=== PATIENT | male | born 1955 | race Caucasian/White ===

== ENCOUNTER 2016-10-22 05:43 | Outpatient (CLI) | payer BC ==
[~2016-10-22] VITALS: Ht 188 cm; Wt 131.5 kg
[2016-10-22] MEDS ORDERED: METF500T4 PO (13:08)
[2016-10-22] MEDS ORDERED: DAPA10TA PO (13:08)
[2016-10-22] MEDS ORDERED: POTA10TA10 PO (13:08)
[2016-10-22] MEDS ORDERED: TEST200V21 IM (13:08)
[2016-10-22] MEDS ORDERED: ATOR10TA PO (13:08)
[2016-10-22] MEDS ORDERED: GLIM2TAB PO (13:08)
[2016-10-22] MEDS ORDERED: FURO80TA83 PO (13:08)
[2016-10-22] MEDS ORDERED: LOSA100T28 PO (13:08)
== END 2016-10-22 13:45 ==
LOC: PREOP 05:43
PROVIDERS: ATTEND Surgery
DX: Z01.818 Encounter for other preprocedural examination (principal); Z12.11 Encounter for screening for malignant neoplasm of colon

== ENCOUNTER 2016-10-26 10:19 | Day surgery (SDC) | payer BC ==
[~2016-10-26] VITALS: Ht 188 cm; Wt 131.5 kg
[~2016-10-26 10:19] MED LIST: ATOR10TA PO; DAPA10TA PO; FURO80TA83 PO; GLIM2TAB PO; LOSA100T28 PO; METF500T4 PO; POTA10TA10 PO; TEST200V21 IM
[2016-10-26] MEDS ORDERED: NS IV 500 ML 500 ML ONE ×2 (10:32→12:04)
[2016-10-26 10:45] VITALS: BP 131/80
[2016-10-26] MEDS: NS IV 500 ML 500 ML IV PRN ×2 (10:57→12:10)
--- NOTE | 2016-10-26 11:09 | History & Physicial ---
History of Present Illness History of Present Illness Reason for visit/HPI to undergo screening colonoscopy Date of Admission Date Seen by Provider: Oct 26, 2016 Time Seen by Provider: 11:08 I consulted on this patient on 10/26/16 11:07 Attending Physician Jim Keller MD Admitting Physician Ahmet Navarro MD Consult Allergies and Home Medications Allergies Coded Allergies: Penicillins (Verified Allergy, Unknown, rash, 10/26/16) Home Medications Atorvastatin Calcium 10 Mg Tablet, 10 MG PO DAILY, (Reported) Dapagliflozin Propanediol 10 Mg Tablet, 10 MG PO DAILY, (Reported) Furosemide 80 Mg Tablet, 80 MG PO DAILY, (Reported) Glimepiride 2 Mg Tablet, 2 MG PO DAILY, (Reported) Losartan Potassium 100 Mg Tablet, 100 MG PO DAILY, (Reported) Metformin HCl 500 Mg Tablet, 1,000 MG PO BID, (Reported) take 2 (500mg) tab Potassium Chloride 10 Meq Tablet.er, 10 MEQ PO DAILY, (Reported) Testosterone Cypionate 200 Mg/1 Ml Vial, 200 MG IM every 2 weeks, (Reported) Past Yuqquze-Toizrc-Ocjzhj Hx Patient Social History Employed/Student: employed Recent Foreign Travel: No Contact w/other who traveled: No Recent Hopitalizations: No Seasonal Allergies Seasonal Allergies: No Surgeries HX Surgeries: Yes (bilat TKR twice, back sx, rotator cuff sx, ) Surgeries: Tonsillectomy Respiratory Hx Respiratory Disorders: No Cardiovascular Hx Cardiovascular Disorders: Yes Cardiac Disorders: Hypertension Neurological Hx Neurological Disorders: No Genitourinary Hx Genitourinary Disorders: No Gastrointestinal Hx Gastrointestinal Disorders: No Musculoskeletal Hx Musculoskeletal Disorders: Yes Musculoskeletal Disorders: Arthritis Endocrine Hx Endocrine Disorders: Yes HEENT HX ENT Disorders: No Cancer Hx Cancer: No Psychosocial Hx Psychiatric Problems: No Integumentary HX Skin/Integumentary Disorder: No Blood Transfusions Hx Blood Disorders: No Constitutional: no symptoms reported EENTM: no symptoms reported Respiratory: no symptoms reported Cardiovascular: no symptoms reported Gastrointestinal: no symptoms reported Genitourinary: no symptoms reported Musculoskeletal: no symptoms reported Skin: no symptoms reported Psychiatric/Neurological: No Symptoms Reported Physical Exam Vital Signs Capillary Refill : General Appearance: No Apparent Distress HEENT: Normal ENT Inspection Neck: Normal Inspection Respiratory: Lungs Clear Cardiovascular: Regular Rate, Rhythm Gastrointestinal: Non Tender, Soft Rectal: Deferred Back: Normal Inspection Extremity: Normal Inspection Neurologic/Psychiatric: Alert, No Motor/Sensory Deficits Skin: Warm/Dry Assessment/Plan Assessment and Plan gentleman to undergo screening colonoscopy. Diverticulosis polyps etc. discussed. Seems to be in agreement to proceed Problems: JIM KELLER MD Oct 26, 2016 11:09 am
--- NOTE | 2016-10-26 11:09 | Conscious Sedation/ASA ---
Conscious Sedation Pre-Proced Time Reviewed: 11:09 ASA Class: 2 Airway Mallampati Classification: ([place] appropriate class) I. II. III, IV Lungs Heart ASA score ASA 1: a normal healthy patient ASA 2: a patient with a mild systemic disease (mid diabetes, controlled hypertension, obesity ASA 3: a patient with a severe systemic disease that limits activity (angina , COPD, prior Myocardial infarction) ASA 4: a patient with an incapacitating disease that is a constant threat to life (CHF, renal failure) ASA 5: a moribund patient not expected to survive 24 hrs. (ruptured aneurysm) ASA 6: a declared brain patient whose organs are being harvested. For emergent operations, add the letter E after the classification Grade 2 Sedation Plan: Discussed options with patient/fam Note The patient is an appropriate candidate to undergo the planned procedure, sedation, and anesthesia. The patient immediately re-assessed prior to indication. JIM KELLER MD Oct 26, 2016 11:09 am
[2016-10-26] MEDS ORDERED: fentaNYL INJECTION 100 MCG/2 ML AMP ONE ×3 (11:18→11:57)
[2016-10-26] MEDS ORDERED: MIDAZOLAM 2 MG/2 ML (VERSED) VIAL ONE ×7 (11:19→11:57)
[2016-10-26] MEDS: fentaNYL INJECTION 100 MCG/2 ML AMP IVP PRN ×2 (12:12→12:17)
[2016-10-26] MEDS: MIDAZOLAM 2 MG/2 ML (VERSED) VIAL IVP PRN ×3 (12:13→12:20)
--- NOTE | 2016-10-26 12:34 | Endo Procedure Record ---
Endo Procedure Report Date of Procedure Oct 26, 2016 Surgeon (s) JIM KELLER MD Post Procedure/Op Diagnosis poor bowel prep. No polyps Procedure Performed colonoscopy to cecum Description of Procedure Anesthesia Type: Conscious Sedation Specimen(s) collected/removed none Description of the Procedure Indication for procedure: This gentleman came in for screening colonoscopy. He has a personal and family history of polyps. Informed consent was obtained after reviewing the procedure details and iatrogenic complications of perforation and post-polypectomy bleeding. Description of the procedure: He was placed in left lateral decubitus position and his vital signs were monitored. Conscious sedation was achieved using Versed and fentanyl. Digital rectal examination was unremarkable. The colonoscope was then introduced in the rectum and advanced all the way up to the cecum. The quality of bowel preparation was rather poor. The scope was then withdrawn slowly and the mucosa examined in a systematic fashion There was no recurrence of polyps. He tolerated the procedure well and was taken back to the nursing area in a stable condition Impression: Personal history of polyps. Normal screening colonoscopy. Recommend repeating in 5 years. Copies To: KARRIE CASTRO MD, XAVIER M MD Oct 26, 2016 12:34 pm
--- NOTE | 2016-10-26 12:35 | Discharge Inst-Simple/Standard ---
Discharge Inst-Standard Discharge Medications New, Converted or Re-Newed RX: Other Patient Instructions/Follow Up Plan of Care/Instructions/FU: follow-up colonoscopy in 5 years Activity as Tolerated: Yes Discharge Diet: No Restrictions JIM KELLER MD Oct 26, 2016 12:35 pm
[2016-10-26 12:50] VITALS: BP 125/67
[2016-10-26 13:20] VITALS: BP 146/85
[2016-10-26 14:05] VITALS: BP 146/85
== END 2016-10-26 14:05 | disposition home or self-care (01) ==
LOC: ENDO 10:19
PROVIDERS: ATTEND Surgery
DX: Z12.11 Encounter for screening for malignant neoplasm of colon (principal); Z86.010 Personal history of colon polyps; Z83.71 Family history of colonic polyps; I10 Essential (primary) hypertension; M19.91 Primary osteoarthritis, unspecified site; Z79.899 Other long term (current) drug therapy
CPT/HCPCS: 82962

== ENCOUNTER 2019-03-20 12:43 | Outpatient (RCR) | payer BC ==
[~2019-03-20 12:43] MED LIST changes: -GLIM2TAB PO; +GLIM2TAB4 PO; -LOSA100T28 PO; +LOSA100T57 PO; +METF-397 PO; -METF500T4 PO
== END 2019-05-18 15:21 | disposition home or self-care (01) ==
PROVIDERS: ATTEND Internal Medicine
DX: I89.0 Lymphedema, not elsewhere classified (principal)

== ENCOUNTER → 2019-10-18 | Outpatient (CLI) | payer BC ==
[2019-10-18 11:25] LABS: BASOPHILS % (AUTO) 0 % (0-10); EOSINOPHILS # (AUTO) 0.1 10^3/uL (0.0-0.3); EOSINOPHILS % (AUTO) 1 % (0-10); HEMATOCRIT 39 % (40-54); LYMPHOCYTES # (AUTO) 1.9 X 10^3 (1.0-4.0); LYMPHOCYTES % (AUTO) 18 % (12-44); MEAN CORPUSCULAR HEMOGLOBIN 29 PG (25-34); MEAN CORPUSCULAR HGB CONC 33 G/DL (32-36); MEAN CORPUSCULAR VOLUME 89 FL (80-99); MEAN PLATELET VOLUME 9.8 FL (7.4-10.4); MONOCYTES % (AUTO) 9 % (0-12); NEUTROPHILS # (AUTO) 7.7 X 10^3 (1.8-7.8); NEUTROPHILS % (AUTO) 72 % (42-75); PLATELET COUNT 350 10^3/uL (130-400); RED CELL DISTRIBUTION WIDTH 13.8 % (10.0-14.5); WHITE BLOOD COUNT 10.7 10^3/uL (4.3-11.0)
[2019-10-18 11:44] LABS: ALANINE AMINOTRANSFERASE 17 U/L (0-55); ALBUMIN 3.6 GM/DL (3.2-4.5); ALKALINE PHOSPHATASE 70 U/L (40-136); BILIRUBIN,TOTAL 0.4 MG/DL (0.1-1.0); BUN/CREATININE RATIO 22; CALCIUM 8.5 MG/DL (8.5-10.1); CARBON DIOXIDE 20 MMOL/L (21-32); CHLORIDE 104 MMOL/L (98-107); CREATININE SERUM 0.87 MG/DL (0.60-1.30); GFR ESTIMATED > 60; GLUCOSE 99 MG/DL (70-105); POTASSIUM 4.5 MMOL/L (3.6-5.0); SODIUM 139 MMOL/L (135-145); TOTAL PROTEIN 7.2 GM/DL (6.4-8.2)
== END ==
LOC: LAB 10:46
PROVIDERS: ATTEND Surgery
DX: S81.801A Unspecified open wound, right lower leg, initial encounter (principal); L02.415 Cutaneous abscess of right lower limb; E11.622 Type 2 diabetes mellitus with other skin ulcer; L97.212 Non-pressure chronic ulcer of right calf with fat layer exposed; I70.232 Atherosclerosis of native arteries of right leg with ulceration of calf
CPT/HCPCS: 36415; 80053; 83036; 85025; 85652; 86141

== ENCOUNTER → 2019-10-18 | Outpatient (CLI) | payer BC | LOC: WOUNDCARE 10-09 12:44 | PROVIDERS: ATTEND Surgery | DX: E11.622 Type 2 diabetes mellitus with other skin ulcer (principal); E11.52 Type 2 diabetes mellitus with diabetic peripheral angiopathy with gangrene; I70.261 Atherosclerosis of native arteries of extremities with gangrene, right leg; L97.212 Non-pressure chronic ulcer of right calf with fat layer exposed; L02.415 Cutaneous abscess of right lower limb; S81.801A Unspecified open wound, right lower leg, initial encounter | CPT/HCPCS: 11042; 11045; A6260; G0463 ==

== ENCOUNTER → 2019-10-23 | Outpatient (CLI) | payer BC | LOC: WOUNDCARE 10:03 | PROVIDERS: ATTEND Surgery | DX: S81.801A Unspecified open wound, right lower leg, initial encounter (principal); L02.415 Cutaneous abscess of right lower limb; E11.622 Type 2 diabetes mellitus with other skin ulcer; L97.212 Non-pressure chronic ulcer of right calf with fat layer exposed; I70.242 Atherosclerosis of native arteries of left leg with ulceration of calf; E11.52 Type 2 diabetes mellitus with diabetic peripheral angiopathy with gangrene | CPT/HCPCS: 11042; 97605; G0463; 99211 ==

== ENCOUNTER → 2019-10-30 | Outpatient (CLI) | payer BC | LOC: WOUNDCARE 09:45 | PROVIDERS: ATTEND Surgery | DX: S81.801A Unspecified open wound, right lower leg, initial encounter (principal); L97.212 Non-pressure chronic ulcer of right calf with fat layer exposed; L02.415 Cutaneous abscess of right lower limb; E11.622 Type 2 diabetes mellitus with other skin ulcer; I70.232 Atherosclerosis of native arteries of right leg with ulceration of calf; E11.52 Type 2 diabetes mellitus with diabetic peripheral angiopathy with gangrene | CPT/HCPCS: 11042; 97605; G0463 ==

== ENCOUNTER → 2019-11-06 | Outpatient (CLI) | payer BC | LOC: WOUNDCARE 09:51 | PROVIDERS: ATTEND Surgery | DX: S81.801A Unspecified open wound, right lower leg, initial encounter (principal); L97.212 Non-pressure chronic ulcer of right calf with fat layer exposed; L02.415 Cutaneous abscess of right lower limb; E11.622 Type 2 diabetes mellitus with other skin ulcer; I70.232 Atherosclerosis of native arteries of right leg with ulceration of calf; E11.52 Type 2 diabetes mellitus with diabetic peripheral angiopathy with gangrene | CPT/HCPCS: 11042; 97605; G0463 ==

== ENCOUNTER → 2019-11-15 | Outpatient (CLI) | payer BC | LOC: WOUNDCARE 08:26 | PROVIDERS: ATTEND Surgery | DX: S81.801A Unspecified open wound, right lower leg, initial encounter (principal); L97.212 Non-pressure chronic ulcer of right calf with fat layer exposed; L02.413 Cutaneous abscess of right upper limb; E11.622 Type 2 diabetes mellitus with other skin ulcer; I70.232 Atherosclerosis of native arteries of right leg with ulceration of calf; E11.52 Type 2 diabetes mellitus with diabetic peripheral angiopathy with gangrene | CPT/HCPCS: 11042; G0463 ==

== ENCOUNTER → 2019-11-22 | Outpatient (CLI) | payer BC | LOC: WOUNDCARE 08:46 | PROVIDERS: ATTEND Surgery | DX: S81.801A Unspecified open wound, right lower leg, initial encounter (principal); L97.212 Non-pressure chronic ulcer of right calf with fat layer exposed; L02.415 Cutaneous abscess of right lower limb; I96 Gangrene, not elsewhere classified | CPT/HCPCS: 11042; G0463 ==

== ENCOUNTER → 2019-11-29 | Outpatient (CLI) | payer BC | LOC: WOUNDCARE 08:44 | PROVIDERS: ATTEND Surgery | DX: S81.801A Unspecified open wound, right lower leg, initial encounter (principal); L97.222 Non-pressure chronic ulcer of left calf with fat layer exposed; L02.415 Cutaneous abscess of right lower limb; E11.622 Type 2 diabetes mellitus with other skin ulcer; I70.232 Atherosclerosis of native arteries of right leg with ulceration of calf; E11.52 Type 2 diabetes mellitus with diabetic peripheral angiopathy with gangrene | CPT/HCPCS: 11042; G0463 ==

== ENCOUNTER → 2019-12-06 | Outpatient (CLI) | payer BC | LOC: WOUNDCARE 08:32 | PROVIDERS: ATTEND Surgery | DX: E11.52 Type 2 diabetes mellitus with diabetic peripheral angiopathy with gangrene (principal); E11.622 Type 2 diabetes mellitus with other skin ulcer; I70.261 Atherosclerosis of native arteries of extremities with gangrene, right leg; L97.212 Non-pressure chronic ulcer of right calf with fat layer exposed; S81.801A Unspecified open wound, right lower leg, initial encounter; L92.8 Other granulomatous disorders of the skin and subcutaneous tissue; L02.415 Cutaneous abscess of right lower limb | CPT/HCPCS: 11042; G0463 ==

== ENCOUNTER → 2019-12-14 | Outpatient (CLI) | payer BC | LOC: WOUNDCARE 08:27 | PROVIDERS: ATTEND Surgery | DX: S81.801A Unspecified open wound, right lower leg, initial encounter (principal); L97.212 Non-pressure chronic ulcer of right calf with fat layer exposed; L02.415 Cutaneous abscess of right lower limb; E11.622 Type 2 diabetes mellitus with other skin ulcer; I70.232 Atherosclerosis of native arteries of right leg with ulceration of calf; L92.8 Other granulomatous disorders of the skin and subcutaneous tissue; E11.52 Type 2 diabetes mellitus with diabetic peripheral angiopathy with gangrene | CPT/HCPCS: 11042; G0463 ==

== ENCOUNTER → 2019-12-20 | Outpatient (CLI) | payer BC | LOC: WOUNDCARE 08:32 | PROVIDERS: ATTEND Surgery | DX: S81.801A Unspecified open wound, right lower leg, initial encounter (principal); L97.212 Non-pressure chronic ulcer of right calf with fat layer exposed; L02.415 Cutaneous abscess of right lower limb; E11.622 Type 2 diabetes mellitus with other skin ulcer; I70.232 Atherosclerosis of native arteries of right leg with ulceration of calf; L92.8 Other granulomatous disorders of the skin and subcutaneous tissue; E11.52 Type 2 diabetes mellitus with diabetic peripheral angiopathy with gangrene | CPT/HCPCS: 11042 ==

== ENCOUNTER → 2019-12-27 | Outpatient (CLI) | payer BC | LOC: WOUNDCARE 08:39 | PROVIDERS: ATTEND Surgery | DX: S81.801A Unspecified open wound, right lower leg, initial encounter (principal); L97.212 Non-pressure chronic ulcer of right calf with fat layer exposed; L02.415 Cutaneous abscess of right lower limb; E11.622 Type 2 diabetes mellitus with other skin ulcer; I70.232 Atherosclerosis of native arteries of right leg with ulceration of calf; L92.8 Other granulomatous disorders of the skin and subcutaneous tissue | CPT/HCPCS: 99212 ==

== ENCOUNTER → 2020-06-17 | Outpatient (CLI) | payer MEDICARE, OTHER | LOC: CARD 09:39 | PROVIDERS: ATTEND Internal Medicine Cardiovascular Disease | DX: I35.1 Nonrheumatic aortic (valve) insufficiency (principal); I10 Essential (primary) hypertension | CPT/HCPCS: 93306 ==

== ENCOUNTER → 2020-07-29 | Outpatient (CLI) | payer MEDICARE, OTHER ==
[~2020-07-29] VITALS: Ht 187 cm; Wt 139.0 kg
[~2020-07-29] MED LIST changes: +CATHETER FLUSH 10 ML SYR IV PRN
[2020-07-29 09:04] VITALS: BP 140/89
--- NOTE | 2020-07-29 10:56 | Cardiology Stress Test Report ---
Stress Test Report Date of Procedure/Referring: Date of Procedure: July 29, 2020 Susanne Mann Admitting Physician Jamie Husain MD Indications: Dyspnea Baseline Heart Rate: 65 Baseline Blood Pressure: Blood Pressure Systolic: 140 Blood Pressure Diastolic: 89 Vital Signs Date Time Temp Pulse Resp B/P (MAP) Pulse Ox O2 Delivery O2 Flow Rate FiO2 07/29/20 09:04 65 140/89 (106) 97 Room Air Baseline Vital Signs Vital Signs Date Time Temp Pulse Resp B/P (MAP) Pulse Ox O2 Delivery O2 Flow Rate FiO2 07/29/20 09:04 65 140/89 (106) 97 Room Air Baseline EKG: Baseline EKG: RBBB Summary: After explaining the procedure and details to the patient, he signed the consent and was brought to the stress nuclear laboratory. Patient exercised on standard Ricci protocol, EKG, heart rate and blood pressure were monitored continuously, resting and stress doses of radio tracer were injected, imaging was acquired and reviewed in the short axis, horizontal long axis and vertical long axis views Patient was able to exercise for a total of 5 minutes on Ricci protocol, METs 7 Maximum heart rate 145 Maximum blood pressure 266/119 Stress EKG, Minimal nondiagnostic changes Recovery EKG, Return to baseline TID: 0.89 SSS: 2 SDS: 0 EF: 51 Conclusion: 1. Fair exercise tolerance for a total of 5 minutes on standard Ricci protocol total of 7 METS achieving 93% of maximal expected heart rate 2. Baseline hypertension with severe hypertensive response to exercise return to baseline during recovery 3. Baseline right bundle branch block persisted during test with minimal nondiagnostic EKG changes 4. Fixed defect involving the inferior wall and inferoapical segment with no significant reversibility 5. Normal left ventricular size, hypokinesia at the inferior wall, EF 51% TAVO ROBISON MD July 29, 2020 10:56
== END ==
LOC: CARD 07:45
PROVIDERS: ATTEND Physician Assistant
DX: R06.00 Dyspnea, unspecified (principal)
CPT/HCPCS: 78452; 93017; A9502

== ENCOUNTER 2022-05-11 05:34 | Outpatient (CLI) | payer MEDICARE, OTHER ==
[~2022-05-11] VITALS: Ht 188 cm; Wt 129.2 kg
[~2022-05-11 05:34] MED LIST changes: -CATHETER FLUSH 10 ML SYR IV PRN
[2022-05-13] MEDS ORDERED: AMLO2.5T4 PO (14:46)
[2022-05-13] MEDS ORDERED: SEMA1PEN3 SQ (14:46)
[2022-05-13] MEDS ORDERED: ASPI-999 PO (14:46)
[2022-05-13] MEDS ORDERED: EMPA10TA PO (14:46)
== END 2022-05-13 14:52 | disposition home or self-care (01) ==
LOC: PREOP 05:34
PROVIDERS: ATTEND Specialist
DX: Z01.818 Encounter for other preprocedural examination (principal)

== ENCOUNTER 2022-05-15 06:15 | Day surgery (SDC) | payer MEDICARE, OTHER ==
[~2022-05-15] VITALS: Ht 188 cm; Wt 129.2 kg
[~2022-05-15 06:15] MED LIST changes: +AMLO2.5T4 PO; +ASPI-999 PO; +EMPA10TA PO; +SEMA1PEN3 SQ
[2022-05-15] MEDS ORDERED: MOXIFLOXACIN OPHTH SOLN 5 MG/ML 0.3 ML SYRINGE OP ONE (06:30)
[2022-05-15] MEDS ORDERED: TIMOLOL 0.5% (CATARACTS) 0.3 ML BTL OU PRN (06:30)
[2022-05-15] MEDS: TETRACAINE 0.5% OPHTH SOLN 4 ML BTL (SINGLE DOSE ONLY) OU PRN ×4 (06:30→06:49)
[2022-05-15] MEDS ORDERED: POVIDONE (BETADINE) OPHTH SOLN 5% 30 ML OP ONE (06:30)
[2022-05-15 06:36] VITALS: BP 116/80
[2022-05-15] MEDS: PHENYLEPHRINE 10% OPHTH (NEO-SYN) 5 ML BTL OU SCH ×3 (06:40→06:49)
[2022-05-15] MEDS: TROPICAMIDE 1% OPH SOLN (MYDRIACYL) 15 ML BTL OP SCH ×3 (06:41→06:49)
[2022-05-15] MEDS ORDERED: MIDAZOLAM 2 MG/2 ML (VERSED) VIAL ONE (07:32)
--- NOTE | 2022-05-15 07:36 | Ophthalmologist Pre-Op Note ---
Pre-Operative Progress Note H&P Reviewed The H&P was reviewed, patient examined and no changes noted. Date H&P Reviewed: May 15, 2022 Time H&P Reviewed: 07:36 Pre-Op Dx Cataract, Left Eye EMLIY BURGER MD May 15, 2022 07:36
--- NOTE | 2022-05-15 08:00 | Ophthalmology Operative Report ---
Cataract removal/placement IOL PREOPERATIVE DIAGNOSIS: Cataract Left Eye POSTOPERATIVE DIAGNOSIS: Cataract Left Eye PROCEDURE: Cataract removal and placement of posterior chamber implant, left eye SURGEON: Bryan Burger ANESTHESIA: Topical with sedation COMPLICATIONS: None ESTIMATED BLOOD LOSS: Minimal DESCRIPTION OF PROCEDURE: After proper informed consent was obtained, the patient, a 67 male, was taken to the Operating Room and the left eye was anesthetized with tetracaine. The left eye was then prepped and draped in the usual manner. A wire lid speculum was placed. A paracentesis was made at the left hand position. Preservative free lidocaine was injected into the anterior chamber followed by viscoelastic. A clear corneal incision was made in the temporal position. A capsulorrhexis was preformed and the central nuclear and cortical material were removed. The posterior capsule was polished and an Jonah 20.5 AU00T0 was placed into the capsular bag. The residual viscoelastic was aspirated and balanced saline solution was injected into the anterior chamber. Moxifloxacin was injected into the anterior chamber. The wound was checked and found to be water tight. The patient tolerated the procedure well without complications. BRYAN BURGER MD May 15, 2022 08:00
[2022-05-15 08:06] VITALS: BP 104/77
[2022-05-15] MEDS ORDERED: acetaZOLAMIDE ER 500 MG CAP (DIAMOX SEQUELS) PO ONE (09:15)
--- NOTE | 2022-05-15 11:47 | Anesthesia-General Post-Op ---
MAC Patient Condition Mental Status/LOC: Same as Preop Cardiovascular: Satisfactory Nausea/Vomiting: Absent Respiratory: Satisfactory Pain: Controlled Complications: Absent Post Op Complications Complications None Follow Up Care/Instructions Patient Instructions None needed. Anesthesiology Discharge Order Discharge Order Patient is doing well, no complaints, stable vital signs, no apparent adverse anesthesia problems. No complications reported per nursing. ZAKI FLOREZ CRNA May 15, 2022 11:47
== END 2022-05-15 08:05 | disposition home or self-care (01) ==
LOC: SDC 06:15
PROVIDERS: ATTEND Specialist
DX: E11.36 Type 2 diabetes mellitus with diabetic cataract (principal); H25.9 Unspecified age-related cataract; Z79.84 Long term (current) use of oral hypoglycemic drugs; Z79.85 Long-term (current) use of injectable non-insulin antidiabetic drugs
CPT/HCPCS: 66984; 82947; V2632

== ENCOUNTER 2022-05-25 05:36 | Outpatient (CLI) | payer MEDICARE, OTHER | END 2022-05-25 13:03 | disposition home or self-care (01) | LOC: PREOP 05:36 | PROVIDERS: ATTEND Specialist | DX: Z01.818 Encounter for other preprocedural examination (principal) ==

== ENCOUNTER 2022-05-29 06:32 | Day surgery (SDC) | payer MEDICARE, OTHER ==
[~2022-05-29] VITALS: Ht 36.5 cm; Wt 129.2 kg
[2022-05-29] MEDS ORDERED: POVIDONE (BETADINE) OPHTH SOLN 5% 30 ML OP ONE (06:45)
[2022-05-29] MEDS ORDERED: TIMOLOL 0.5% (CATARACTS) 0.3 ML BTL OU PRN (06:45)
[2022-05-29] MEDS ORDERED: MOXIFLOXACIN OPHTH SOLN 5 MG/ML 0.3 ML SYRINGE OP ONE (06:45)
[2022-05-29] MEDS: TETRACAINE 0.5% OPHTH SOLN 4 ML BTL (SINGLE DOSE ONLY) OU PRN ×4 (06:47→07:07)
[2022-05-29 06:52] VITALS: BP 116/80
[2022-05-29] MEDS: TROPICAMIDE 1% OPH SOLN (MYDRIACYL) 15 ML BTL OP SCH ×3 (06:56→07:08)
[2022-05-29] MEDS: PHENYLEPHRINE 10% OPHTH (NEO-SYN) 5 ML BTL OU SCH ×3 (06:57→07:08)
[2022-05-29] MEDS ORDERED: MIDAZOLAM 2 MG/2 ML (VERSED) VIAL ONE (07:15)
--- NOTE | 2022-05-29 07:46 | Ophthalmologist Pre-Op Note ---
Pre-Operative Progress Note H&P Reviewed The H&P was reviewed, patient examined and no changes noted. Date H&P Reviewed: May 29, 2022 Time H&P Reviewed: 07:46 Pre-Op Dx Cataract, Right Eye EMILY BURGER MD May 29, 2022 07:46
--- NOTE | 2022-05-29 08:09 | Ophthalmology Operative Report ---
Cataract removal/placement IOL PREOPERATIVE DIAGNOSIS: Cataract Right Eye POSTOPERATIVE DIAGNOSIS: Cataract Right Eye PROCEDURE: Cataract removal and placement of posterior chamber implant, right eye SURGEON: Bryan Burger ANESTHESIA: Topical with sedation COMPLICATIONS: None ESTIMATED BLOOD LOSS: Minimal DESCRIPTION OF PROCEDURE: After proper informed consent was obtained, the patient, a 67 male, was taken to the Operating Room and the right eye was anesthetized with tetracaine. The right eye was then prepped and draped in the usual manner. A wire lid speculum was placed. A paracentesis was made at the left hand position. Preservative free lidocaine was injected into the anterior chamber followed by viscoelastic. A clear corneal incision was made in the temporal position. A capsulorrhexis was preformed and the central nuclear and cortical material were removed. The posterior capsule was polished and Jonah 20.5 AU00T0 IOL was placed into the capsular bag. The residual viscoelastic was aspirated and balanced saline solution was injected into the anterior chamber. Moxifloxacin was injected into the anterior chamber. The wound was checked and found to be water tight. The patient tolerated the procedure well without complications. BRYAN BURGER MD May 29, 2022 08:09
[2022-05-29 08:15] VITALS: BP 120/76
[2022-05-29] MEDS ORDERED: acetaZOLAMIDE ER 500 MG CAP (DIAMOX SEQUELS) PO ONE (10:00)
--- NOTE | 2022-05-29 12:02 | Anesthesia-General Post-Op ---
MAC Patient Condition Mental Status/LOC: Same as Preop Cardiovascular: Satisfactory Nausea/Vomiting: Absent Respiratory: Satisfactory Pain: Controlled Complications: Absent Post Op Complications Complications None Follow Up Care/Instructions Patient Instructions None needed. Anesthesiology Discharge Order Discharge Order Patient was doing well this morning with no complaints, stable vital signs, no apparent adverse anesthesia problems. No complications reported per nursing. GENE EL DO May 29, 2022 12:02
== END 2022-05-29 08:17 | disposition home or self-care (01) ==
LOC: SDC 06:32
PROVIDERS: ATTEND Specialist
DX: E11.36 Type 2 diabetes mellitus with diabetic cataract (principal); H25.9 Unspecified age-related cataract; Z79.84 Long term (current) use of oral hypoglycemic drugs; Z79.85 Long-term (current) use of injectable non-insulin antidiabetic drugs
CPT/HCPCS: 66984; V2632

== ENCOUNTER 2022-11-24 01:46 | Emergency (ER) | payer MEDICARE, OTHER ==
[~2022-11-24] VITALS: Ht 190 cm; Wt 129.2 kg
[~2022-11-24 01:46] MED LIST changes: -LOSA100T57 PO; +LOSA100T58 PO
[2022-11-24 02:15] LABS: BASOPHILS # (AUTO) 0.1 10^3/uL (0.0-0.1); BASOPHILS % (AUTO) 0 % (0-10); EOSINOPHILS % (AUTO) 0 % (0-10); HEMATOCRIT 48 % (40-54); HEMOGLOBIN 15.7 g/dL (13.3-17.7); LYMPHOCYTES # (AUTO) 1.4 10^3/uL (1.0-4.0); LYMPHOCYTES % (AUTO) 6 % (12-44); MEAN CORPUSCULAR HEMOGLOBIN 30 pg (25-34); MEAN CORPUSCULAR HGB CONC 33 g/dL (32-36); MEAN CORPUSCULAR VOLUME 90 fL (80-99); MEAN PLATELET VOLUME 10.1 fL (9.0-12.2); MONOCYTES # (AUTO) 1.6 10^3/uL (0.0-1.0); MONOCYTES % (AUTO) 6 % (0-12); NEUTROPHILS # (AUTO) 22.1 10^3/uL (1.8-7.8); NEUTROPHILS % (AUTO) 87 % (42-75); PLATELET COUNT 343 10^3/uL (130-400); WHITE BLOOD COUNT 25.3 10^3/uL (4.3-11.0)
[2022-11-24] MEDS ORDERED: fentaNYL INJECTION 100 MCG/2 ML VIAL IVP ONE (02:15)
[2022-11-24 02:22] LABS: BACTERIA,URINE LARGE /HPF; BILIRUBIN,URINE NEGATIVE (NEGATIVE); CLARITY,URINE CLEAR; COLOR,URINE YELLOW; GLUCOSE, URINE (UA) 3+ (NEGATIVE); KETONES,URINE 2+ (NEGATIVE); LEUKOCYTE ESTERASE ,URINE 1+ (NEGATIVE); NITRITE,URINE POSITIVE (NEGATIVE); PH,URINE 5.5 (5-9); PROTEIN,URINE NEGATIVE (NEGATIVE); RBC,URINE 0-2 /HPF
[2022-11-24 02:32] LABS: CALCIUM 9.3 MG/DL (8.5-10.1); CREATININE SERUM 1.07 MG/DL (0.60-1.30); POTASSIUM 4.3 MMOL/L (3.6-5.0)
[2022-11-24] MEDS ORDERED: cefTRIAXone IV/IM 1,000 MG in NS (IVPB) 50 ML 50 ML IV STA (02:37)
--- NOTE | 2022-11-24 02:37 | ED General ---
General Chief Complaint: - Reproductive Stated Complaint: TESTICLE PX,LEFT SIDE PX Nursing Triage Note: left testicular pain/swelling since 89 denies injury. Source of Information: Patient Exam Limitations: No Limitations History of Present Illness Date Seen by Provider: Nov 24, 2022 Time Seen by Provider: 01:57 Allergies and Home Medications Allergies Coded Allergies: Penicillins (Verified Allergy, Unknown, rash, 05/13/22) lisinopril (Verified Adverse Reaction, Unknown, COUGH, 05/13/22) Patient Home Medication List Amlodipine Besylate (Amlodipine Besylate) 2.5 Mg Tablet, 2.5 MG PO DAILY, (Reported) Entered as Reported by: DEANDRE SARAVIA on 05/13/22 1446 Aspirin (Aspirin) 81 Mg Tab.chew, 81 MG PO DAILY, (Reported) Entered as Reported by: DEANDRE SARAVIA on 05/13/22 1446 Atorvastatin Calcium (Lipitor) 10 Mg Tablet, 10 MG PO DAILY, (Reported) Entered as Reported by: NALLELY CARRILLO on 10/22/16 1308 Empagliflozin (Jardiance) 10 Mg Tablet, 10 MG PO DAILY, (Reported) Entered as Reported by: DEANDRE SARAVIA on 05/13/22 1446 Furosemide (Lasix) 80 Mg Tablet, 80 MG PO DAILY, (Reported) Entered as Reported by: NALLELY CARRILLO on 10/22/16 1308 Losartan Potassium (Losartan Potassium) 100 Mg Tablet, 100 MG PO DAILY, (Reported) Entered as Reported by: NALLELY CARRILLO on 10/22/16 1308 Metformin HCl (Metformin HCl) 500 Mg Tablet, 1,000 MG PO BID, (Reported) Entered as Reported by: NALLELY CARRILLO on 10/22/16 1308 Potassium Chloride (Potassium Chloride) 10 Meq Tablet.er, 10 MEQ PO DAILY, (Reported) Entered as Reported by: NALLELY CARRILLO on 10/22/16 1308 Semaglutide (Ozempic) 1 Mg/0.75 Ml (4 Mg/3 Ml) Pen.injctr, 1 MG SQ WEEK, (Reported) Entered as Reported by: DEANDRE SARAVIA on 05/13/22 1446 Past Ckocvrk-Eonukw-Pjqbps Hx Patient Social History Tobacco Use?: No Substance use?: No Alcohol Use?: No Pt feels they are or have been: No Seasonal Allergies Seasonal Allergies: No Past Medical History Surgery/Hospitalization HX: bilateral cataract, htn, hld, dm, right leg infection Tonsillectomy Hypertension Arthritis Physical Exam-Suspected Sepsis Physical Exam Vital Signs Vital Signs - First Documented 11/24/22 02:12 Temp 36.5 Pulse 103 Resp 18 B/P (MAP) 151/98 (115) Pulse Ox 93 O2 Delivery Room Air Capillary Refill : Less Than 3 Seconds Blood Pressure Mean: 115 Height, Weight, BMI Height: 6'2.00" Weight: 290lbs. 0.0oz. 131.092969us; 35.00 BMI Method: Focused Exam Lactate Level 11/24/22 02:45: Lactic Acid Level 0.91 Lactic Acid Level Laboratory Tests Test 11/24/22 02:45 Lactic Acid Level 0.91 MMOL/L (0.50-2.00) Progress/Results/Core Measures Suspected Sepsis SIRS Temperature: Pulse: 103 Respiratory Rate: 18 Laboratory Tests 11/24/22 02:05: White Blood Count 25.3H Blood Pressure 151 /98 Mean: 115 11/24/22 02:45: Lactic Acid Level 0.91 Laboratory Tests 11/24/22 02:05: Creatinine 1.07, Platelet Count 343 Results/Orders Lab Results Laboratory Tests Test 11/24/22 02:00 11/24/22 02:05 11/24/22 02:45 Range/Units Urine Color YELLOW Urine Clarity CLEAR Urine pH 5.5 5-9 Urine Specific [place] 1.015 L 1.016-1.022 Urine Protein NEGATIVE NEGATIVE Urine Glucose (UA) 3+ H NEGATIVE Urine Ketones 2+ H NEGATIVE Urine Nitrite POSITIVE H NEGATIVE Urine Bilirubin NEGATIVE NEGATIVE Urine Urobilinogen 0.2 < = 1.0 MG/DL Urine Leukocyte Esterase 1+ H NEGATIVE Urine RBC (Auto) TRACE H NEGATIVE Urine RBC 0-2 /HPF Urine WBC 10-25 H /HPF Urine Crystals NONE /LPF Urine Bacteria LARGE H /HPF Urine Casts NONE /LPF Urine Mucus NEGATIVE /LPF Urine Culture Indicated YES White Blood Count 25.3 H 4.3-11.0 10^3/uL Red Blood Count 5.32 4.30-5.52 10^6/uL Hemoglobin 15.7 13.3-17.7 g/dL Hematocrit 48 40-54 % Mean Corpuscular Volume 90 80-99 fL Mean Corpuscular Hemoglobin 30 25-34 pg Mean Corpuscular Hemoglobin Concent 33 32-36 g/dL Red Cell Distribution Width 13.2 10.0-14.5 % Platelet Count 343 130-400 10^3/uL Mean Platelet Volume 10.1 9.0-12.2 fL Immature Granulocyte % (Auto) 1 % Neutrophils (%) (Auto) 87 H 42-75 % Lymphocytes (%) (Auto) 6 L 12-44 % Monocytes (%) (Auto) 6 0-12 % Eosinophils (%) (Auto) 0 0-10 % Basophils (%) (Auto) 0 0-10 % Neutrophils # (Auto) 22.1 H 1.8-7.8 10^3/uL Lymphocytes # (Auto) 1.4 1.0-4.0 10^3/uL Monocytes # (Auto) 1.6 H 0.0-1.0 10^3/uL Eosinophils # (Auto) 0.0 0.0-0.3 10^3/uL Basophils # (Auto) 0.1 0.0-0.1 10^3/uL Immature Granulocyte # (Auto) 0.1 0.0-0.1 10^3/uL Neutrophils % (Manual) 81 % Lymphocytes % (Manual) 3 % Monocytes % (Manual) 5 % Band Neutrophils 9 % Reactive Lymphocytes 2 % Sodium Level 137 135-145 MMOL/L Potassium Level 4.3 3.6-5.0 MMOL/L Chloride Level 101 98-107 MMOL/L Carbon Dioxide Level 22 21-32 MMOL/L Anion Gap 14 5-14 MMOL/L Blood Urea Nitrogen 20 H 7-18 MG/DL Creatinine 1.07 0.60-1.30 MG/DL Estimat Glomerular Filtration Rate 76 BUN/Creatinine Ratio 19 Glucose Level 170 H 70-105 MG/DL Calcium Level 9.3 8.5-10.1 MG/DL C-Reactive Protein High Sensitivity 4.70 H 0.00-0.50 MG/DL Lactic Acid Level 0.91 0.50-2.00 MMOL/L My Orders Orders - HIRA IGNACIO MD Ua Culture If Indicated (11/24/22 01:58) Basic Metabolic Panel (11/24/22 02:09) Cbc With Automated Diff (11/24/22 02:09) Hs C Reactive Protein (11/24/22 02:09) Us Scrotum (Testicle) 80600 (11/24/22 02:09) Ed Iv/Invasive Line Start (11/24/22 02:09) Fentanyl Injection (Fentanyl Injection (11/24/22 02:15) Manual Differential (11/24/22 02:05) Urine Culture (11/24/22 02:00) Blood Culture (11/24/22 02:31) Vital Signs Adult Sepsis Patie Q15M (11/24/22 02:31) Remove Rings In Anticipation O (11/24/22 02:31) Lactic Acid Analyzer (11/24/22 02:31) Ceftriaxone Iv/Im (Ceftriaxone Iv/Im) (11/24/22 02:37) Chlamydia Trachomatis Urine (11/24/22 02:37) Neis Rolly Dna Urine Test (11/24/22 02:37) Morphine Injection (Morphine Injection (11/24/22 03:30) Ketorolac Injection (Ketorolac Injection (11/24/22 03:45) Levofloxacin Tablet (Levofloxacin Tabl (11/24/22 03:45) Medications Given in ED Current Medications Medications Dose Ordered Sig/Shannan Route Start Time Stop Time Status Last Admin Dose Admin Fentanyl Citrate 75 mcg ONCE ONCE IVP 11/24/22 02:15 11/24/22 02:16 DC 11/24/22 02:18 75 MCG Ketorolac Tromethamine 30 mg ONCE ONCE IVP 11/24/22 03:45 11/24/22 03:46 DC 11/24/22 03:45 30 MG Levofloxacin 500 mg ONCE ONCE PO 11/24/22 03:45 11/24/22 03:46 DC 11/24/22 03:44 500 MG Morphine Sulfate 4 mg ONCE ONCE IVP 11/24/22 03:30 11/24/22 03:31 DC 11/24/22 03:23 4 MG Vital Signs/I&O 11/24/22 02:12 Temp 36.5 Pulse 103 Resp 18 B/P (MAP) 151/98 (115) Pulse Ox 93 O2 Delivery Room Air Capillary Refill : Less Than 3 Seconds Blood Pressure Mean: 115 Departure Impression Primary Impression: Left epididymitis Additional Impression: Urinary tract infection Qualified Codes: N39.0 - Urinary tract infection, site not specified Disposition: 01 HOME, SELF-CARE Condition: Improved Departure-Patient Inst. Decision time for Depature: 04:01 Referrals: TOMMIE HUSAIN MD (PCP/Family) Primary Care Physician Patient Instructions: Urinary Tract Infection, Adult (DC), Epididymitis Add. Discharge Instructions: Drink plenty of clear liquids to stay well-hydrated and to help flush out infection. Urinate often. Complete antibiotics as prescribed. Follow-up with your primary care provider after 48 hours to review urine culture results. For primary pain control take ibuprofen up to 600 mg every 6 hours as needed. Add hydrocodone for pain not well controlled by ibuprofen. Hydrocodone may cause drowsiness so you should not drive, operate machinery, or make important decisions while on hydrocodone. Hydrocodone may also cause constipation, so you may wish to use a stool softener such as Colace while on hydrocodone. Return to the emergency room if you have worsening symptoms despite following these instructions. All discharge instructions reviewed with patient and/or family. Voiced understanding. Scripts Hydrocodone/Acetaminophen (Hydrocodone-Acetamin 5-325 mg) 5 Mg-325 Mg Tablet 1 TAB PO Q4H PRN for PAIN BREAKTROUGH, #10 TAB Prov: HIRA IGNACIO MD 11/24/22 Levofloxacin (Levofloxacin) 500 Mg Tablet 500 MG PO DAILY, #9 TAB Prov: HIRA IGNACIO MD 11/24/22 HIRA IGNACIO MD Nov 24, 2022 02:37
[2022-11-24 02:38] LABS: BAND NEUTROPHILS 9 %; LYMPHOCYTES % (MANUAL) 3 %; MONOCYTES % (MANUAL) 5 %; NEUTROPHILS % (MANUAL) 81 %; REACTIVE LYMPHOCYTES 2 %
[2022-11-24] MEDS ORDERED: morphine INJ 4 MG/ML 1 ML (VIAL/SYRINGE) IVP ONE (03:30)
[2022-11-24] MEDS ORDERED: LevoFLOXacin 500 MG TABLET PO ONE (03:45)
[2022-11-24] MEDS ORDERED: KETOROLAC INJ 30 MG/ML VIAL IVP ONE (03:45)
[2022-11-24] MEDS ORDERED: LEVO-55 PO (04:04)
[2022-11-24] MEDS ORDERED: ACHD5005 PO (04:04)
[2022-11-24 04:10] VITALS: BP 143/88
--- NOTE | 2022-11-24 08:30 | Diagnostic Imaging Report ---
PROCEDURE: US Scrotum. TECHNIQUE: Multiple real-time grayscale images were obtained over the scrotum in various projections bilaterally. INDICATION: Left scrotal pain. No priors. The testicles bilaterally appeared normal. No findings of orchitis or torsion. No testicular mass. The right-sided epididymis appeared normal in echotexture, morphology and color Doppler blood flow. The left epididymis however is enlarged, hypoechoic and hypervascularized consistent with unilateral left-sided epididymitis. There is a small simple reactive left-sided hydrocele without abscess or pyocele. IMPRESSION: Unilateral left epididymitis without yoli orchitis. Small reactive left hydrocele without abscess or pyocele. I agree with the preliminary Dictated by: Dictated on workstation # [id number]
== END 2022-11-24 04:13 | disposition home or self-care (01) ==
LOC: EDUNIT# 01:46 → ER 01:50
DX: N45.1 Epididymitis (principal); N39.0 Urinary tract infection, site not specified; Z88.0 Allergy status to penicillin
CPT/HCPCS: 36415; 76870; 80048; 81000; 83605; 85007; 85027; 86141; 87040; 87077; 87088; 87186; 87491; 87591

== ENCOUNTER 2023-01-08 18:09 | Emergency (ER) | payer MEDICARE, OTHER ==
[~2023-01-08] VITALS: Ht 187 cm; Wt 122.4 kg
[~2023-01-08 18:09] MED LIST changes: +ACHD5005 PO; +LEVO-55 PO
[2023-01-08 18:21] VITALS: BP 121/80
--- NOTE | 2023-01-08 18:29 | ED Lower Extremity ---
General Chief Complaint: Lower Extremity Stated Complaint: PAIN/SWELLING BEHIND LEFT KNEE Nursing Triage Note: Patient ambulatory to room 2 with complaint of Left knee posterior pain x1 week. patient denies injury. states "feels like pain in bone" radiates to ankle. Source: patient Exam Limitations: no limitations (NOBLE HUTSON) History of Present Illness Date Seen by Provider: Jan 08, 2023 Time Seen by Provider: 18:26 Initial Comments Patient is a 67-year-old male presents ED with left posterior knee pain. Knee pain started about a week ago. Patient feels a knot behind the left knee. Increased in size and pain. Described as dull and fairly constant worse when he extends out his left knee. Pain radiates down to the left ankle and left upper thigh. Denies of any specific injury. History of knee replacement in his left knee. Denies of any bruising or redness but does report some swelling. Denies history of DVT recent travels or surgeries. Has been taking ibuprofen without much improvement. Patient denies chest pain, shortness of breath, nausea vomit, diarrhea. History of diabetes. Denies of any redness or warmth to the left knee. (NOBLE HUTSON) Allergies and Home Medications Allergies Coded Allergies: Penicillins (Verified Allergy, Unknown, rash, 05/13/22) lisinopril (Verified Adverse Reaction, Unknown, COUGH, 05/13/22) Patient Home Medication List Home Medication List Reviewed: Yes (NOBLE HUTSON) Amlodipine Besylate (Amlodipine Besylate) 2.5 Mg Tablet, 2.5 MG PO DAILY, (Reported) Entered as Reported by: DEANDRE SARAVIA on 05/13/22 1446 Aspirin (Aspirin) 81 Mg Tab.chew, 81 MG PO DAILY, (Reported) Entered as Reported by: DEANDRE SARAVIA on 05/13/22 1446 Atorvastatin Calcium (Lipitor) 10 Mg Tablet, 10 MG PO DAILY, (Reported) Entered as Reported by: NALLELY CARRILLO on 10/22/16 1308 Empagliflozin (Jardiance) 10 Mg Tablet, 10 MG PO DAILY, (Reported) Entered as Reported by: DEANDRE SARAVIA on 05/13/22 1446 Furosemide (Lasix) 80 Mg Tablet, 80 MG PO DAILY, (Reported) Entered as Reported by: NALLELY CARRILLO on 10/22/16 1308 Hydrocodone/Acetaminophen (Hydrocodone-Acetamin 5-325 mg) 5 Mg-325 Mg Tablet, 1 TAB PO Q4H PRN for PAIN BREAKTROUGH Prescribed by: HIRA BRENNAN on 11/24/22 0405 Hydrocodone/Acetaminophen (Hydrocodone-Acetamin 5-325 mg) 5 Mg-325 Mg Tablet, 1 TAB PO Q4H PRN for PAIN-MODERATE (5-7) Prescribed by: EDILMA GOYAL on 01/08/23 1921 Levofloxacin (Levofloxacin) 500 Mg Tablet, 500 MG PO DAILY Prescribed by: HIRA BRENNAN on 11/24/22 0404 Losartan Potassium (Losartan Potassium) 100 Mg Tablet, 100 MG PO DAILY, (Reported) Entered as Reported by: NALLELY CARRILLO on 10/22/16 1308 Metformin HCl (Metformin HCl) 500 Mg Tablet, 1,000 MG PO BID, (Reported) Entered as Reported by: NALLELY CARRILLO on 10/22/16 1308 Potassium Chloride (Potassium Chloride) 10 Meq Tablet.er, 10 MEQ PO DAILY, (Reported) Entered as Reported by: NALLELY CARRILLO on 10/22/16 1308 Semaglutide (Ozempic) 1 Mg/0.75 Ml (4 Mg/3 Ml) Pen.injctr, 1 MG SQ WEEK, (Reported) Entered as Reported by: DEANDRE SARAVIA on 05/13/22 1446 Review of Systems Constitutional: No chills, No diaphoresis EENTM: No ear pain, No blurred vision Respiratory: No cough, No dyspnea on exertion Cardiovascular: No chest pain, No edema Gastrointestinal: No abdominal pain, No diarrhea, No nausea, No vomiting Genitourinary: No decreased output, No discharge Musculoskeletal: No back pain; joint pain (NOBLE HUTSON) All Other Systems Reviewed Negative Unless Noted: Yes (NOBLE HUTSON) Past Lvkbjeg-Imrmik-Fwofgv Hx Seasonal Allergies Seasonal Allergies: No (NOBLE HUTSON) Past Medical History Surgery/Hospitalization HX: bilateral cataract, htn, hld, dm, right leg infection, cortez knee replacement x2 Surgeries: Yes (Surgery related to right leg infection) Eye Surgery, Tonsillectomy Respiratory: No Cardiac: Yes Hypertension Neurological: No Genitourinary: No Gastrointestinal: No Musculoskeletal: Yes Arthritis Endocrine: Yes Diabetes, Non-Insulin dep HEENT: No Cancer: No Psychosocial: No Integumentary: No (NOBLE HUTSON) Physical Exam Vital Signs Vital Signs - First Documented 01/08/23 18:21 Pulse 82 Resp 20 B/P (MAP) 121/80 (94) O2 Delivery Room Air (AC,WILL K DO) Vital Signs Capillary Refill : Less Than 3 Seconds (NOBLE HUTSON) Height, Weight, BMI Height: 6'2.00" Weight: 290lbs. 0.0oz. [id number]; 35.00 BMI Method: General Appearance: WD/WN, no apparent distress HEENT: PERRL/EOMI, normal ENT inspection, TMs normal, pharynx normal Neck: non-tender, full range of motion Cardiovascular: regular rate, rhythm, no edema, no gallop, no JVD Respiratory: chest non-tender, lungs clear, normal breath sounds, no respiratory distress Gastrointestinal: normal bowel sounds, non tender, soft, no organomegaly Hips: bilateral hip non-tender, bilateral hip normal inspection, bilateral hip normal range of motion Knees: left knee other (Left posterior knee tenderness with swelling. Palpable nodule. Normal active range of motion left knee. No erythema or warmth. Flexion extension intact. Dorsalis pedis +2. No significant swelling bruising distally.) Ankles: bilateral ankle non-tender, bilateral ankle normal inspection, bilater al ankle no evidence of injury Feet: bilateral foot non-tender, bilateral foot normal inspection, bilateral foot normal range of motion Neurologic/Psychiatric: sumatra opener II-XII nml as tested, no motor/sensory deficits, alert, normal mood/affect, oriented x 3 Skin: normal color (NOBLE HUTSON) Progress/Results/Core Measures Results/Orders Lab Results Laboratory Tests Test 01/08/23 18:35 Range/Units Prothrombin Time 13.5 12.2-14.7 SEC INR Comment 1.0 0.8-1.4 Activated Partial Thromboplast Time 27 24-35 SEC D-Dimer 0.47 0.00-0.49 UG/ML Sodium Level 136 135-145 MMOL/L Potassium Level 3.7 3.6-5.0 MMOL/L Chloride Level 102 98-107 MMOL/L Carbon Dioxide Level 23 21-32 MMOL/L Anion Gap 11 5-14 MMOL/L Blood Urea Nitrogen 24 H 7-18 MG/DL Creatinine 1.10 0.60-1.30 MG/DL Estimat Glomerular Filtration Rate 74 BUN/Creatinine Ratio 22 Glucose Level 110 H 70-105 MG/DL Calcium Level 9.0 8.5-10.1 MG/DL Corrected Calcium 8.8 8.5-10.1 MG/DL Total Bilirubin 0.6 0.1-1.0 MG/DL Aspartate Amino Transf (AST/SGOT) 13 5-34 U/L Alanine Aminotransferase (ALT/SGPT) 15 0-55 U/L Alkaline Phosphatase 65 40-136 U/L Total Protein 7.5 6.4-8.2 GM/DL Albumin 4.2 3.2-4.5 GM/DL (ACPheedWILL [place] DO) Vital Signs/I&O 01/08/23 18:21 Pulse 82 Resp 20 B/P (MAP) 121/80 (94) O2 Delivery Room Air ([place] DO) Blood Pressure Mean: 94 Departure Communication (PCP) Patient is a 67-year-old male who presents ED with left posterior knee pain. No specific injury. Pain radiates down to the left calf. No obvious redness or warmth of the left knee. Does have a area of tenderness to the left posterior knee feels more like fluid. Concern for Ziegler's cyst Do not have ultrasound on the evenings. I did order a D dimer which was negative. Rule out DVT. X-ray was performed which was negative for acute fracture. History of left knee repl acement. Arthroplasty appears to be intact. Reassuring lab work. Did receive an oral dose of hydrocodone. No evidence of septic arthritis. No evidence of cellulitis. At this time recommend outpatient follow-up. Recommend compression stockings, Jaylen brace. Suggest follow-up with orthopedic for further evaluation. Since I do not have ultrasound during the evening outpatient ultrasound for further evaluation. If any worsening symptoms return back to ED. Recommend anti-inflammatories. Return precaution were discussed (NOBLE HUTSON) Impression Primary Impression: Left knee pain Disposition: HOME, SELF-CARE Condition: Stable Departure-Patient Inst. Decision time for Depature: 19:19 (NOBLE HUTSON) Referrals: TOMMIE HUSAIN MD (PCP/Family) Primary Care Physician Patient Instructions: Ziegler's Cyst (DC), Knee Pain Add. Discharge Instructions: Recommend follow-up with orthopedic. Knee brace for comfort. All discharge instructions reviewed with patient and/or family. Voiced understanding. Scripts Hydrocodone/Acetaminophen (Hydrocodone-Acetamin 5-325 mg) 5 Mg-325 Mg Tablet 1 TAB PO Q4H PRN for PAIN-MODERATE (5-7), #8 TAB Prov: NOBLE HUTSON 01/08/23 ATTENDING PHYSICIAN NOTE: I WAS PHYSICALLY PRESENT ER PHYSICIAN, BUT I WAS NOT INVOLVED IN ANY DECISION MAKING OR ANY CARE OF THIS PATIENT, AND I AM NOT COLLABORATING PHYSICIAN. (WILL SHEN DO) NOBLE HUTSON Jan 08, 2023 18:29 WILL SHEN DO Jan 09, 2023 19:13
[2023-01-08] MEDS ORDERED: HYDROcodone/ACETAMINOPHEN 5 MG/325 MG TABLET PO ONE (18:30)
--- NOTE | 2023-01-08 18:52 | Diagnostic Imaging Report ---
INDICATION: Knee pain. EXAMINATION: Left knee 01/08/2023 FINDINGS: The knee is flexed on the lateral view with no joint effusion appreciated. Total knee arthroplasty appears intact with no evidence for loosening or surrounding fracture. No dislocation. IMPRESSION: 1. No acute process. Dictated by: Dictated on workstation # [id number]
[2023-01-08 18:58] LABS: ALBUMIN 4.2 GM/DL (3.2-4.5); POTASSIUM 3.7 MMOL/L (3.6-5.0)
[2023-01-08 19:00] LABS: TOTAL PROTEIN 7.5 GM/DL (6.4-8.2)
[2023-01-08 19:01] LABS: PROTHROMBIN TIME PATIENT 13.5 SEC (12.2-14.7)
[2023-01-08 19:02] LABS: BILIRUBIN,TOTAL 0.6 MG/DL (0.1-1.0)
[2023-01-08 19:04] LABS: CREATININE SERUM 1.1 MG/DL (0.60-1.30); FIBRIN DEGRADATION PRODUCTS 0.47 UG/ML (0.00-0.49)
[2023-01-08] MEDS ORDERED: ACHD5005 PO (19:20)
== END 2023-01-08 19:26 | disposition home or self-care (01) ==
LOC: EDUNIT# 18:09 → ER 18:11
DX: M25.562 Pain in left knee (principal); M79.89 Other specified soft tissue disorders; Z96.652 Presence of left artificial knee joint
CPT/HCPCS: 36415; 73562; 80053; 85379; 85610; 85730; 99281